=== PATIENT | female | born 2000 | race Hispanic/Latino ===

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

== ENCOUNTER 2020-03-07 10:42 | Emergency (ER) | payer OTHER ==
[2020-03-07 10:51] VITALS: BP 117/78
--- NOTE | 2020-03-07 11:01 | Emergency Department Report ---
ED General Adult HPI - General Chief complaint: Medical Clearance Stated complaint: DIARRHEA/SMELL/TASTE LOSS Time Seen by Provider: 03/07/20 10:53 Source: patient Mode of arrival: Ambulatory Limitations: No Limitations - History of Present Illness Initial comments: This is a 19-year-old female nontoxic, well nourished in appearance, no acute signs of distress presents to the ED with c/o of loss of taste and smell x 2days. Stated had 1 episode of diarrhea last night but has resolved today. Patient denies any sick contact. Patient otherwise denies any symptoms. Denies any URI symptoms or cough. Patient denies any recent travels, long car, recent hospital stays. Patient denies any calf pain or calf tenderness. Patient denies any chest pain, short of breath, fever, chills, nausea, vomiting, hemoptysis, numbness, tingling, headache or stiff neck. Patient denies any allergies or significant past medical history. -: days(s) (2) Severity scale (0 -10): 0 Improves with: none Worsens with: none Associated Symptoms: denies other symptoms. denies: confusion, chest pain, cough, diaphoresis, fever/chills, headaches, loss of appetite, malaise, nausea/vomiting, rash, seizure, shortness of breath, syncope, weakness Treatments Prior to Arrival: none - Related Data Previous Rx's Medication Instructions Recorded Last Taken Type Iron Polysaccharide Complex 150 mg PO DAILY 30 Days #30 capsule 12/31/18 Unknown Rx [Ferric X-150] labetaloL [Labetalol 100mg TAB] 100 mg PO BID 7 Days #14 tablet 12/31/18 Unknown Rx Allergies Allergy/AdvReac Type Severity Reaction Status Date / Time No Known Allergies Allergy Verified 03/07/20 10:48 ED Review of Systems ROS: Stated complaint: DIARRHEA/SMELL/TASTE LOSS Other details as noted in HPI Comment: All other systems reviewed and negative Constitutional: denies: chills, fever Eyes: denies: eye pain, eye discharge, vision change ENT: denies: ear pain, throat pain Respiratory: denies: cough, shortness of breath, wheezing Cardiovascular: denies: chest pain, palpitations Endocrine: no symptoms reported Gastrointestinal: denies: abdominal pain, nausea, diarrhea Genitourinary: denies: urgency, dysuria, discharge Musculoskeletal: denies: back pain, joint swelling, arthralgia Skin: denies: rash, lesions Neurological: denies: headache, weakness, paresthesias Psychiatric: denies: anxiety, depression Hematological/Lymphatic: denies: easy bleeding, easy bruising ED Past Medical Hx - Past Medical History Hx Hypertension: No Hx Congestive Heart Failure: No Hx Diabetes: No Hx Deep Vein Thrombosis: No Hx Renal Disease: No Hx Sickle Cell Disease: No Hx Seizures: No Hx Asthma: No Hx COPD: No Hx HIV: No - Surgical History Past Surgical History?: No - Social History Smoking Status: Never Smoker - Medications Home Medications: Home Medications Medication Instructions Recorded Confirmed Last Taken Type Iron Polysaccharide Complex 150 mg PO DAILY 30 Days #30 capsule 12/31/18 Unknown Rx [Ferric X-150] labetaloL [Labetalol 100mg TAB] 100 mg PO BID 7 Days #14 tablet 12/31/18 Unknown Rx ED Physical Exam - General Limitations: No Limitations General appearance: alert, in no apparent distress - Head Head exam: Present: atraumatic, normocephalic - Eye Eye exam: Present: normal appearance - Neck Neck exam: Present: normal inspection, full ROM - Respiratory Respiratory exam: Present: normal lung sounds bilaterally. Absent: respiratory distress, wheezes, rales, rhonchi, stridor, chest wall tenderness, accessory muscle use, decreased breath sounds, prolonged expiratory - Cardiovascular Cardiovascular Exam: Present: regular rate, normal rhythm, normal heart sounds. Absent: bradycardia, tachycardia, irregular rhythm, systolic murmur, diastolic murmur, rubs, gallop - GI/Abdominal GI/Abdominal exam: Present: soft. Absent: distended, tenderness - Extremities Exam Extremities exam: Present: full ROM - Back Exam Back exam: Present: full ROM - Neurological Exam Neurological exam: Present: alert, oriented X3, normal gait - Psychiatric Psychiatric exam: Present: normal affect, normal mood - Skin Skin exam: Present: warm, dry, intact, normal color. Absent: rash ED Course Vital Signs 03/07/20 10:50 Temperature 98.3 F Pulse Rate 85 Respiratory 18 Rate Blood Pressure 117/78 O2 Sat by Pulse 100 Oximetry - Reevaluation(s) Reevaluation #1: 03/07/20 10:59 Patient is speaking in full sentences with no signs of distress noted. ED Medical Decision Making - Medical Decision Making This is a 19-year-old female that presents with suspected Covid. Patient is stable and was examined by me. Patient was given referrals to places where to g et Covid swabs. Physical exam is unremarkable. Patient does meet clinical concerns of COVID-19 and patient was instructed and educated on signs and symptoms and to self quarantine and seek medical attention as soon as possible if symptoms worsen. Patient was instructed to increase hydration, rest and take Tylenol for fever episodes. Vitals stable. Patient is nonfebrile and normal heart rate. Patient was instructed Follow-up with a primary care doctor in 3-5 days or if symptoms worsen and continue return to emergency room as soon as possible. At time time of discharge, the patient does not seem toxic or ill in appearance. No acute signs of distress noted. Patient agrees to discharge treatment plan of care. No further questions noted by the patient.nt. Critical care attestation.: If time is entered above; I have spent that time in minutes in the direct care of this critically ill patient, excluding procedure time. ED Disposition Clinical Impression: Suspected COVID-19 virus infection Disposition: MED SCREENING EXAM-LEFT Is pt being admited?: No Does the pt Need Aspirin: No Condition: Stable Instructions: COVID-19 Frequently Asked Questions, COVID-19 Additional Instructions: Follow-up with a primary care doctor in 3-5 days or if symptoms worsen and continue return to emergency room as soon as possible. As educated and instructed to you must self quarantine yourself and people that you have been in close contact with similar symptoms for the next 14 days. Please see your nearest health department or primary care doctor that you are referred to for COVID testing. Increased rest, hydration, and take Tylenol as prescribed for fever episode. Referrals: PRIMARY MD JLUIS [Referring] - 3-5 Days JENN RAINEY MD [Staff Physician] - 3-5 Days Time of Disposition: 11:00
== END 2020-03-07 11:41 | disposition left against medical advice (07) ==
LOC: ED 10:42
DX: R43.8 Other disturbances of smell and taste (principal); Z20.828 Contact with and (suspected) exposure to other viral communicable diseases; R19.7 Diarrhea, unspecified; Z53.21 Procedure and treatment not carried out due to patient leaving prior to being seen by health care provider

== ENCOUNTER 2021-03-29 08:20 | Inpatient (IN) | payer OTHER ==
[2021-03-29] MEDS ORDERED: LACTATED RINGERS 1,000 ML ONE (09:20)
[2021-03-29] MEDS ORDERED: AMPICILLIN/NS 2 GM/100 ML 2 GM/100 ML BAG IV ONE (10:50)
[2021-03-29] MEDS ORDERED: miSOPROStol 200 MCG TAB PR PRN (11:00)
[2021-03-29] MEDS ORDERED: OXYTOCIN DRIP 30 UNITS/500 ML BAG IV SCH ×2 (11:00)
[2021-03-29] MEDS ORDERED: LACTATED RINGERS 1,000 ML IV SCH (11:00)
--- NOTE | 2021-03-29 11:18 | History and Physical Report ---
History of Present Illness Date of examination: 03/29/21 Date of admission: 03/29/2021 Chief complaint: Contractions and SROM History of present illness: 20 y/o female presented to [facility] at 39.6 weeks with c/o contractions x several hours and SROM (clear fluid) at 0815 03/29/2021 . Denies vaginal bleeding and admits to + movement. Initiated care at [facility] at 9 6/7 weeks. Had a a failed 1hr with 3hr GTT within normal limits. 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 Hx of mitral valve prolaspse. PIH and anemia in previous . 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 GBS negative. Low dose ASA started at 12 weeks due to PIH in previous . Family hx of cardiac disorders. Pt was found to be in active labor and admit to L&D for pitocin augmentation. 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, current smoker, ) Past Surgical History: no surgical history [employer] HEALTH MANAGER History: herpes (HSV-1 genital) Family/Genetic History: heart disease Social history: single, smoking, full code - Obstetrical History Expected Date of Delivery: 03/31/21 Actual Gestation: 39 Week(s) 5 Day(s) : 2 Para: 1 Hx # Term Pregnancies: 1 Number of Living Children: 1 Medications and Allergies Allergies Allergy/AdvReac Type Severity Reaction Status Date / Time No Known Allergies Allergy Verified 03/07/20 10:48 Home Medications Medication Instructions Recorded Confirmed Last Taken Type Iron Polysaccharide Complex 150 mg PO DAILY 30 Days #30 capsule 12/31/18 Unknown Rx [Ferric X-150] labetaloL [Labetalol 100mg TAB] 100 mg PO BID 7 Days #14 tablet 12/31/18 Unknown Rx Active Meds: Active Medications Acetaminophen (Acetaminophen 325 Mg Tab) 650 mg PO Q4H PRN PRN Reason: Pain, Mild (1-3) Butorphanol Tartrate (Butorphanol 2 Mg/1 Ml Inj) 1 mg IV Q2H PRN PRN Reason: Pain, Moderate(4-6) LABOR PAIN Butorphanol Tartrate (Butorphanol 2 Mg/1 Ml Inj) 2 mg IV Q2H PRN PRN Reason: Pain , Severe (7-10) Carboprost Tromethamine (Carboprost Tromethamine 250 Mcg/1 Ml Inj) 250 mcg IM ONCE PRN PRN Reason: Uterine Bleeding Ephedrine Sulfate (Ephedrine Sulfate 50 Mg/1 Ml Inj) 10 mg IV Q2M PRN PRN Reason: Hypotension Fentanyl (Fentanyl 100 Mcg/2 Ml Inj) 100 mcg IV Q2H PRN PRN Reason: Pain,Severe (7-10) LABOR PAIN Oxytocin/Sodium Chloride (Pitocin/Ns 30 Unit/500ml) 30 units in 500 mls @ 2 mls/hr IV TITR RENATE; Protocol Lactated Ringer's (Lactated Ringers) 1,000 mls @ 125 mls/hr IV DIRECT RENATE Oxytocin/Sodium Chloride (Pitocin/Ns 30 Unit/500ml) 30 units in 500 mls @ 40 mls/hr IV TITR RENATE; Protocol Lidocaine (Lidocaine (2%) 20 Mg/1 Ml Vial 20 Ml Mdv) 20 ml INFILTRATI ONCE ONE Stop: 03/29/21 10:51 Loperamide HCl (Loperamide 2 Mg Cap) 2 mg PO ONCE PRN PRN Reason: give with Hemabate Methylergonovine Maleate (Methylergonovine Maleate 0.2 Mg/Ml Vial) 0.2 mg IM ONCE PRN PRN Reason: Uterine Bleeding Mineral Oil (Mineral Oil 30 Ml Oral Liqd) 30 ml PO QHS PRN PRN Reason: Constipation Misoprostol (Misoprostol 200 Mcg Tab) 800 mcg VA ONCE PRN PRN Reason: Uterine Bleeding Oxytocin (Oxytocin 10 Unit/1 Ml Inj) 10 unit IM ONCE PRN PRN Reason: Uterine Bleeding Terbutaline Sulfate (Terbutaline 1 Mg/1 Ml Inj) 0.25 mg SUB-Q ONCE PRN PRN Reason: Hyperstimulation/Hypertonicity Review of Systems All systems: negative Eyes: deferred Ears, nose, mouth and throat: deferred Breasts: normal Gastrointestinal: other (contraction) Genitourinary: normal appearance Rectal Exam: deferred - Vital Signs Vital signs: Vital Signs Pulse Pulse Ox 28 L 98 03/29/21 08:40 03/29/21 08:40 Temp Pulse Resp BP Pulse Ox 98.7 F 86 121/78 98 03/29/21 09:41 03/29/21 11:05 03/29/21 10:52 03/29/21 11:05 - Physical Exam Breasts: Positive: normal Abdomen: Positive: normal appearance, soft, normal bowel sounds Genitourinary (Female): Positive: normal external genitalia, normal perenium Vulva: both: normal Vagina: Positive: normal moisture Uterus: Positive: enlarged, other (Gravid) Adnexa: both: normal Anus/Rectum: Positive: normal perianal skin Extremities: Positive: normal - Obstetrical FHR: category 1 Uterine Contraction Monitor Mode: External Cervical Dilatation: 6.5 Cervical Effacement Percentage: 90 station: -2 Uterine Contraction Frequency (min): 2-4 Uterine Contraction Duration: 80-100 Uterine Contraction Pattern: Regular Uterine Tone Measurement Phase: Resting Uterine Contraction Intensity: Moderate Results Result Diagrams: 03/29/21 09:50 All other labs normal. Assessment and Plan A:IUP @ 39.5 with SROM (clear fluid) at 0815 03/29/2021 HSV-1 genital Hx of PIH and anemia with previous , Hx mitral valve prolapse GBS negative P: Admit to L&D for Pitocin aug Continuos monitoring Pain meds/ epidural prn Anticipate - Patient Problems (1) Supervision of normal IUP (intrauterine ) in multigravida Current Visit: Yes Status: Acute
[2021-03-29 11:20] LABS: Hematocrit 38.5 % (30.3-42.9); Hemoglobin 12.5 gm/dl (10.1-14.3); Mean Corpuscular HGB Conc 33 % (30-34); Mean Corpuscular Volume 98 fl (79-97); Platelet Count 290 K/mm3 (140-440); Red Blood Count 3.92 M/mm3 (3.65-5.03); Red Cell Distribution Width 12.9 % (13.2-15.2)
[2021-03-29] MEDS ORDERED: BUTORPHANOL 2 MG/1 ML INJ IV PRN ×2 (11:30)
[2021-03-29] MEDS ORDERED: TERBUTALINE 1 MG/1 ML INJ SUB-Q PRN (11:30)
[2021-03-29] MEDS ORDERED: MINERAL OIL 30 ML ORAL LIQD PO PRN (11:30)
[2021-03-29] MEDS ORDERED: ACETAMINOPHEN 325 MG TAB PO PRN (11:30)
[2021-03-29] MEDS ORDERED: ePHEDrine SULFATE 50 MG/1 ML INJ IV PRN (11:30)
[2021-03-29] MEDS ORDERED: OXYTOCIN 10 UNIT/1 ML INJ IM PRN (11:30)
[2021-03-29] MEDS ORDERED: fentaNYL 100 MCG/2 ML INJ IV PRN (11:30)
[2021-03-29] MEDS ORDERED: METHYLERGONOVINE MALEATE 0.2 MG/ML VIAL IM PRN (11:30)
[2021-03-29] MEDS ORDERED: LOPERAMIDE 2 MG CAP PO PRN (11:30)
[2021-03-29] MEDS ORDERED: LIDOCAINE (2%) 20 MG/1 ML VIAL 20 ML MDV INFILTRATI SCH (11:30)
[2021-03-29] MEDS ORDERED: CARBOPROST TROMETHAMINE 250 MCG/1 ML INJ IM PRN (12:00)
[2021-03-29] MEDS ORDERED: AMPICILLIN/NS 1 GM/50 ML 1 GM/50 ML BAG IV SCH (15:00)
--- NOTE | 2021-03-29 15:16 | Procedure Note ---
OB Delivery Note - Delivery Date of Delivery: 03/29/21 Surgeon: CARRIE SHARMA Estimated blood loss: other (150cc QBL) - Vaginal Delivery presentation: vertex Delivery position: OA Delivery induction: none Delivery monitor: external FHT, external uterine Route of delivery: Delivery placenta: spontaneous Delivery cord: nuchal cord, 3 umbilical vessels Episiotomy: none Delivery laceration: none Anesthesia: intravenous Delivery comments: of a viable female infant in OA position over an intact perineum. Nuchal cord times one was reduced over 's head at delivery. Spontaneous delivery of shoulder and body. was placed on mom's chest for skin to skin bonding. Delayed cord clamping while nurse dried and stimulated baby. Cord was double clamped and FOB was allowed to cut the cord. Baby was taken to warmer for an initial asses while engineering writer obtained cord blood. 9/9 Spontaneous delivery of an intact placenta with 3CV. FF@ U2 with fundal massage and IV Pitocin. Mom and baby was left in stable condition with nurses. QBL 150cc. FW 3060 Gms. - Infant A at 1 minute: 9 at 5 minutes: 9 Infant Gender: Female
[2021-03-29] MEDS ORDERED: diphenhydrAMINE 25 MG CAP PO PRN (16:00)
[2021-03-29] MEDS ORDERED: PROMETHAZINE 25 MG RECT SUPP PR PRN (16:00)
[2021-03-29] MEDS ORDERED: ONDANSETRON 4 MG/2 ML INJ IV PRN (16:00)
[2021-03-29] MEDS ORDERED: MAGNESIUM HYDROXIDE (MOM) ORAL LIQD UDC PO PRN (16:00)
[2021-03-29] MEDS ORDERED: LANOLIN/ZINC/DIMETHICONE (LANSINOH) 7 GM TP PRN (16:00)
[2021-03-29] MEDS ORDERED: WITCH HAZEL/ GLYCERIN PAD TP PRN (16:00)
[2021-03-29] MEDS ORDERED: PROMETHAZINE 25 MG TAB PO PRN (16:00)
[2021-03-29] MEDS ORDERED: oxyCODONE /ACETAMINOPHEN 5-325MG TAB PO PRN (16:00)
[2021-03-29] MEDS: IBUPROFEN 600 MG TAB PO SCH (23:40)
[2021-03-30 05:59] LABS: Hematocrit 33.4 % (30.3-42.9); Hemoglobin 11.2 gm/dl (10.1-14.3)
--- NOTE | 2021-03-30 08:56 | Progress Note ---
Assessment and Plan A: PP Day #1 Stable P: Follow Routine Orders D/C Home today per patient request RTO in 6 Weeks Subjective - Subjective Date of service: 03/30/21 Patient reports: appetite normal, voiding normally, pain well controlled, flat us, ambulating normally : doing well Objective - Vital Signs Latest vital signs: Vital Signs Temp Pulse Resp BP BP Pulse Ox Pulse Ox 03/30/21 08:10 98 F 81 20 107/64 97 03/30/21 01:17 98.4 F 97 H 20 101/55 98 03/29/21 23:40 20 03/29/21 20:11 98.2 F 102 H 20 119/76 95 03/29/21 19:40 99 03/29/21 17:25 98.5 F 86 18 112/71 97 97 03/29/21 17:02 76 100 03/29/21 16:57 81 100 03/29/21 16:52 78 100 03/29/21 16:49 83 108/68 03/29/21 16:47 73 100 03/29/21 16:42 82 110/70 100 03/29/21 16:15 87 100 03/29/21 16:10 80 100 03/29/21 16:05 75 100 03/29/21 16:04 74 112/73 03/29/21 16:00 97.7 F 80 100 03/29/21 15:55 81 100 03/29/21 15:50 77 100 03/29/21 15:49 73 113/70 03/29/21 15:45 76 100 03/29/21 15:40 85 100 03/29/21 15:35 86 100 03/29/21 15:34 83 116/66 03/29/21 15:30 86 100 03/29/21 15:25 87 100 03/29/21 15:20 85 100 03/29/21 15:19 84 117/56 03/29/21 15:15 88 100 03/29/21 15:10 84 100 03/29/21 15:05 89 100 03/29/21 15:00 91 H 100 03/29/21 14:56 104 H 88 03/29/21 14:55 100 H 99 03/29/21 14:50 92 H 98 03/29/21 14:45 94 H 97 03/29/21 14:43 109 H 92 03/29/21 14:40 79 98 03/29/21 14:37 93 H 93 03/29/21 14:35 95 H 99 03/29/21 14:30 122 H 99 03/29/21 14:25 142 H 99 03/29/21 14:20 110 H 96 03/29/21 14:15 97 H 98 03/29/21 14:10 94 H 98 03/29/21 14:05 96 H 99 03/29/21 14:00 92 H 97 03/29/21 13:55 85 98 03/29/21 13:50 91 H 99 03/29/21 13:45 86 98 03/29/21 13:40 89 98 03/29/21 13:38 88 119/65 03/29/21 13:36 102 H 89 03/29/21 13:35 99 H 97 03/29/21 13:30 106 H 96 03/29/21 13:25 98 H 98 03/29/21 13:20 87 97 03/29/21 13:15 92 H 96 03/29/21 13:10 72 97 03/29/21 13:05 82 97 03/29/21 13:00 86 98 03/29/21 12:55 78 96 03/29/21 12:50 82 98 03/29/21 12:45 79 97 03/29/21 12:42 91 H 94 03/29/21 12:40 81 95 03/29/21 12:35 85 95 03/29/21 12:34 76 94 03/29/21 12:30 74 95 03/29/21 12:29 74 94 03/29/21 12:25 75 95 03/29/21 12:24 82 94 03/29/21 12:20 83 96 03/29/21 12:15 93 H 95 03/29/21 12:13 85 84 03/29/21 12:10 88 95 03/29/21 12:05 71 97 03/29/21 12:00 74 97 03/29/21 11:55 82 95 03/29/21 11:50 88 96 03/29/21 11:45 98.3 F 81 97 03/29/21 11:40 84 96 03/29/21 11:38 87 94 03/29/21 11:35 95 H 97 03/29/21 11:30 114 H 99 03/29/21 11:25 105 H 97 03/29/21 11:20 83 96 03/29/21 11:15 84 97 03/29/21 11:10 81 97 03/29/21 11:05 86 98 03/29/21 11:00 98 H 96 03/29/21 10:55 83 98 03/29/21 10:52 83 121/78 89 03/29/21 10:50 96 H 95 03/29/21 10:47 97 03/29/21 10:01 82 98 03/29/21 09:55 84 99 03/29/21 09:50 87 98 03/29/21 09:45 85 98 03/29/21 09:41 98.7 F 89 03/29/21 09:40 91 H 98 03/29/21 09:35 81 99 03/29/21 09:30 82 99 03/29/21 09:25 86 99 03/29/21 09:20 94 H 98 03/29/21 09:15 92 H 98 03/29/21 09:10 92 H 98 03/29/21 09:05 84 98 03/29/21 09:00 89 98 03/29/21 08:55 89 99 Intake and Output 03/29/21 03/30/21 03/30/21 22:59 06:59 14:59 Intake Total 360 240 320 Balance 360 240 320 Intake: Oral 320 Intake, Free Water 360 240 Other: Total, Intake Amount 320 # Voids Indwelling Catheter 2 1 Void 1 Estimated Blood Loss 150 - Exam Breasts: Present: normal Cardiovascular: Present: Regular rate Lungs: Present: Clear to auscultation, Normal air movement Abdomen: Present: normal appearance, soft, normal bowel sounds Uterus: Present: normal, firm, fundal height below umbilicus Extremities: Present: normal - Labs Labs: Abnormal lab results 03/29/21 Range/Units 09:50 MCV 98 H (79-97) fl RDW 12.9 L (13.2-15.2) %
--- NOTE | 2021-03-30 08:57 | Discharge Summary ---
Providers - Providers Date of Admission: 03/29/21 10:50 Date of discharge: 03/30/21 Attending physician: MEHDI BALTAZAR MD Primary care physician: MEHDI BALTAZAR MD Hospitalization Reason for admission: active labor Delivery: Episiotomy: none Laceration: none Other procedures: none complications: none Discharge diagnosis: IUP at term delivered baby: female Condition at discharge: Good Disposition: 01 HOME / SELF CARE / HOMELESS Plan - Provider Discharge Summary Activity: routine, no sex for 6 weeks, no heavy lifting 4 weeks, no strenuous exercise Diet: routine Instructions: routine Additional instructions: [] Smoking cessation referral if applicable(refer to patient education folder for contact #) [] Refer to [facility]'s [facility] Booklet Call your doctor immediately for: * Fever > 100.5 * Heavy vaginal bleeding ( >1 pad per hour) * Severe persistent headache * Shortness of breath * Reddened, hot, painful area to leg or breast * Drainage or odor from incision. * Keep incision clean and dry at all times and follow doctor's instructions regarding bathing/showering - Follow up plan Follow up: MEHDI BALTAZAR MD [Primary Care Provider] - 6 Weeks
[2021-03-30] MEDS ORDERED: PRENATAL VIT27-FE FUMARATE-FOLIC ACID VIT TAB PO SCH (10:00)
[2021-03-30] MEDS: IBUPROFEN 600 MG TAB PO SCH (10:15)
[2021-03-30 16:33] VITALS: BP 112/69
== END 2021-03-30 18:40 | disposition home or self-care (01) | DRG 774 ==
LOC: TRG 08:20 → APU 08:26 → LD 10:16 → TRG 10:50 → OB 17:11
PROVIDERS: ADMIT Obstetrics & Gynecology; ATTEND Obstetrics & Gynecology
PROC: 10E0XZZ Delivery of Products of Conception, External Approach (ICD-10-PCS; principal; 2021-03-29)
DX: O69.81X0 Labor and delivery complicated by cord around neck, without compression, not applicable or unspecified (principal); O98.32 Other infections with a predominantly sexual mode of transmission complicating childbirth; A60.00 Herpesviral infection of urogenital system, unspecified; Z3A.39 39 weeks gestation of pregnancy; Z37.0 Single live birth; Z20.822 Contact with and (suspected) exposure to COVID-19
CPT/HCPCS: 36415; 59025; 85014; 85018; 85027; 86850; 86900; 86901; 96360; 96361; G0378; J0595; J7120; U0003